=== PATIENT | female | born 1965 | race Caucasian/White ===

== ENCOUNTER 2023-10-10 12:03 | Emergency (ER) | payer OTHER ==
[2023-10-10] MEDS ORDERED: Sodium Chloride 0.9% 10 ML Syringe FLUSH PRN (12:25)
[2023-10-10 12:48] LABS: BASOPHILS ABSOLUTE AUTO 0.01 10^3/uL (0.00-0.10); BASOPHILS PERCENT AUTO 0.1 % (0.0-1.0); EOSINOPHILS ABSOLUTE AUTO 0.06 10^3/uL (0.10-0.30); EOSINOPHILS PERCENT AUTO 0.6 % (1.0-3.0); HEMATOCRIT 46.2 % (37.0-47.0); HEMOGLOBIN 15.3 g/dL (12.0-16.0); IMMATURE GRAN ABSOLUTE AUTO 0.01 10^3/uL (0.00-0.50); IMMATURE GRAN PERCENT AUTO 0.1 % (0.0-5.0); LYMPHOCYTES ABSOLUTE AUTO 1.86 10^3/uL (1.00-4.00); LYMPHOCYTES PERCENT AUTO 19.3 % (20.0-40.0); MEAN CORPUSCULAR HEMOGLOBIN 29.6 pg (27.0-31.0); MEAN CORPUSCULAR HGB CONC 33.1 g/dL (32.0-36.0); MEAN CORPUSCULAR VOLUME 89.4 fL (82.0-92.0); MONOCYTES ABSOLUTE AUTO 0.58 10^3/uL (0.10-0.80); NEUTROPHILS ABSOLUTE AUTO 7.14 10^3/uL (2.50-7.00); NEUTROPHILS PERCENT AUTO 73.9 % (50.0-70.0); PLATELET COUNT,PLT 252 10^3/uL (150-400); RED BLOOD CELL COUNT 5.17 10^6/uL (3.80-5.50); RED CELL DISTRIBUTION WIDTH 12.9 % (11.5-14.5); WHITE BLOOD CELL COUNT,WBC 9.66 10^3/uL (5.00-10.00)
[2023-10-10 13:03] LABS: ALBUMIN 3.83 g/dL (3.40-5.00); ANION GAP 16.7 mmol/L (5-15); BILIRUBIN TOTAL 0.5 mg/dL (0.2-1.0); CALCIUM 9.4 mg/dL (8.7-10.3); CARBON DIOXIDE,CO2 24.3 mmol/L (21.0-32.0); CREATININE 0.8 mg/dL (0.51-1.17); EST CRCL DRUG DOSING (CG) 70.88 mL/min; PROTEIN TOTAL,TP 7.5 g/dL (6.4-8.2)
[2023-10-10] MEDS: Iopamidol 755 Mg/ML 100 ML Bottle IV ONE (13:28)
[2023-10-10] MEDS: Sodium Chloride 0.9% 50 ML IV SCH (13:29)
[2023-10-10] MEDS: Acetaminophen/HYDROcodone 325-5 MG Tab PO ONE (14:33)
[2023-10-10] MEDS: Ondansetron 4 MG/2 ML SDV IVPUSH ONE (14:34)
== END 2023-10-10 15:20 | disposition home or self-care (01) ==
LOC: KA.ED 12:03
DX: K80.70 Calculus of gallbladder and bile duct without cholecystitis without obstruction (principal); Q44.1 Other congenital malformations of gallbladder; F17.210 Nicotine dependence, cigarettes, uncomplicated; Z88.8 Allergy status to other drugs, medicaments and biological substances
CPT/HCPCS: 36415; 74177; 80053; 82150; 83690; 85025; 96374; 99284; A9270; J2405; J3490; Q9967

== ENCOUNTER 2023-10-24 06:54 | Day surgery (SDC) | payer OTHER ==
[2023-10-24] MEDS ORDERED: Ondansetron 4 MG/2 ML SDV IV ONE (06:55)
[2023-10-24] MEDS ORDERED: Dexamethasone 4 MG/ML SDV IV ONE (06:55)
[2023-10-24] MEDS ORDERED: Succinylcholine 200 MG/10 ML MDV IV ONE (06:55)
[2023-10-24] MEDS ORDERED: Rocuronium 50 MG/5 ML Vial IV ONE (06:55)
[2023-10-24] MEDS ORDERED: Sodium Chloride 0.9% 10 ML Syringe FLUSH PRN (07:00)
[2023-10-24] MEDS: Lactated Ringers 1,000 ML IV SCH (07:36)
[2023-10-24] MEDS ORDERED: ceFAZolin 1 GM Vial ONE ×2 (07:37→07:54)
[2023-10-24] MEDS ORDERED: Bacitracin/Neomycin/Polymyxin B Oint 0.9 GM U/D Packet ONE (07:38)
[2023-10-24] MEDS ORDERED: Bupivacaine 0.25%/EPINEPHrine 1:200,000 30 ML SDV ONE (07:38)
[2023-10-24] MEDS ORDERED: Lactated Ringers 0 ML ONE (07:38)
[2023-10-24] MEDS ORDERED: Albuterol/Ipratropium 3.0-0.5 MG/3 ML Neb Soln ONE (07:48)
[2023-10-24] MEDS ORDERED: fentaNYL 250 MCG/5 ML SDV ONE (07:54)
[2023-10-24] MEDS ORDERED: Lactated Ringers 1,000 ML ONE (07:55)
[2023-10-24] MEDS ORDERED: Midazolam 1 MG/ML 2 ML SDV ONE (07:55)
[2023-10-24] MEDS ORDERED: Neostigmine Methylsulfate 10 MG/10 ML MDV ONE (07:55)
[2023-10-24] MEDS ORDERED: Glycopyrrolate 0.2 MG/ML SDV ONE (07:55)
[2023-10-24] MEDS ORDERED: Propofol 200 MG/20 ML SDV ONE (07:55)
[2023-10-24] MEDS ORDERED: Scopalamine 1mg/3day Transdermal Patch ONE (07:56)
[2023-10-24] MEDS: Albuterol/Ipratropium 3.0-0.5 MG/3 ML Neb Soln NEB ONE (08:01)
[2023-10-24] MEDS: Bacitracin/Neomycin/Polymyxin B Oint 0.9 GM U/D Packet TOP ONE (08:38)
[2023-10-24] MEDS ORDERED: Albuterol 8 GM Inhaler ONE (09:37)
[2023-10-24] MEDS ORDERED: Ketorolac 30 MG/ML SDV ONE (09:39)
[2023-10-24] MEDS ORDERED: Morphine 4 MG/ML Syringe IVPUSH ONE (11:29)
[2023-10-24] MEDS: Acetaminophen 325 MG Tab PO ONE (11:53)
== END 2023-10-24 12:45 | disposition home or self-care (01) ==
LOC: KA.SDS 06:54
PROVIDERS: ATTEND Surgery
DX: K80.10 Calculus of gallbladder with chronic cholecystitis without obstruction (principal); E78.5 Hyperlipidemia, unspecified; F17.210 Nicotine dependence, cigarettes, uncomplicated; Z79.899 Other long term (current) drug therapy; Z79.84 Long term (current) use of oral hypoglycemic drugs; Z88.8 Allergy status to other drugs, medicaments and biological substances
CPT/HCPCS: 00790; A9270-GY; J0330; J0690; J1100; J1885; J2250; J2405; J2704; J2710; J3010; J3490; J7120; J7620-GY

== ENCOUNTER 2025-03-10 10:57 | Emergency (ER) | payer MEDICAID, OTHER ==
[2025-03-10] MEDS: Bacitracin/Neomycin/Polymyxin B Oint 0.9 GM U/D Packet TOP SCH (11:49)
[2025-03-10] MEDS: Bacitracin/Neomycin/Polymyxin B Oint 0.9 GM U/D Packet ONE (13:11)
== END 2025-03-10 12:05 | disposition home or self-care (01) ==
LOC: KA.ED 11:02
DX: S91.115A Laceration without foreign body of left lesser toe(s) without damage to nail, initial encounter (principal); Z79.899 Other long term (current) drug therapy; Z79.1 Long term (current) use of non-steroidal anti-inflammatories (NSAID); Z88.8 Allergy status to other drugs, medicaments and biological substances; W10.9XXA Fall (on) (from) unspecified stairs and steps, initial encounter
CPT/HCPCS: 12001; 73660-T4; 99283; J2003